=== PATIENT | female | born 1990 | race Two or more races ===

== ENCOUNTER 2021-02-11 15:31 | Emergency (ER) | payer OTHER ==
[~2021-02-11] VITALS: Ht 185.4 cm; Wt 179.2 kg
[2021-02-11 16:26] VITALS: BP 158/100
== END 2021-02-11 16:28 | disposition home or self-care (01) ==
LOC: ER 15:31
DX: L03.311 Cellulitis of abdominal wall (principal); I10 Essential (primary) hypertension; Z88.6 Allergy status to analgesic agent

== ENCOUNTER → 2024-09-21 | Outpatient (CLI) | payer OTHER ==
[2024-09-21 11:20] LABS: Urine Blood Negative /uL (Negative); Urine Clarity Turbid (Clear); Urine Color Yellow (Yellow); Urine Protein, UAD Negative (Negative); Urine Specific Gravity 1.023 (1.001-1.035); Urine Urobilinogen Normal (Negative); Urine pH 5.5 (5.0-9.0)
[2024-09-21 11:34] LABS: Alanine Aminotransferase 26 U/L (7-40); Albumin 4.7 g/dL (3.2-4.8); Alkaline Phosphatase 87 U/L (46-116); Anion Gap 10 (5-15); Aspartate Aminotransferase 15 U/L (13-40); BUN/Creatinine Ratio 10.2 (10.0-20.0); Basophils # (auto) 0 10 ^3/uL (0-0.2); Basophils % (auto) 0.4 % (0.0-2.0); Bilirubin, Total 0.4 mg/dL (0.2-1.0); Blood Urea Nitrogen 9 mg/dL (9-23); Calcium 9.9 mg/dL (8.7-10.4); Carbon Dioxide 25 mmol/L (20-31); Chloride 103 mmol/L (98-107); Cholesterol 192 mg/dL (< 200); Eosinophils # (auto) 0.1 10 ^3/uL (0-0.8); Eosinophils % (auto) 1.5 % (0.0-7.0); Glucose 152 mg/dL (74-106); HDL Cholesterol 53 mg/dL (40-59); Hemoglobin 14.3 g/dL (12.2-16.2); Lymphocytes # (auto) 2.5 10 ^3/uL (0.4-5.4); Lymphocytes % (auto) 26.6 % (10.0-50.0); Mean Corpuscular Hemoglobin 28.5 pg (28.0-32.0); Mean Corpuscular Volume 83.9 fL (80.0-100.0); Monocytes # (auto) 0.5 10 ^3/uL (0-1.3); Monocytes % (auto) 5.7 % (0.0-12.0); Neutrophils # (auto) 6.3 10 ^3/uL (1.6-8.6); Neutrophils % (auto) 65.8 % (37.0-80.0); Nucleated Red Blood Cells % 0.1 %; Platelet Count (auto) 251 10^3/uL (140-450); Potassium 4.1 mmol/L (3.5-5.1); Red Blood Cells 5.01 10^6/uL (4.0-5.20); Red Cell Distribution Width 15.2 % (11.8-14.3); Sodium 138 mmol/L (136-145); Triglycerides 123 mg/dL (< 150); White Blood Cell 9.5 10^3/uL (4.4-10.8)
[2024-09-21 11:35] LABS: LDL Cholesterol 127 mg/dL (< 100)
[2024-09-21 11:37] LABS: Folate (Folic Acid) 10.74 ng/mL (>5.38); Leuteinizing Hormone 7.5 IU/L; Prolactin 9.32 ng/mL (2.8-29.2)
[2024-09-22 08:07] LABS: Estradiol 67.8 pg/mL (.)
== END | disposition home or self-care (01) ==
LOC: LAB 10:30
PROVIDERS: ATTEND Student in an Organized Health Care Education/Training Program
DX: I10 Essential (primary) hypertension (principal); E55.9 Vitamin D deficiency, unspecified; E78.5 Hyperlipidemia, unspecified; N92.6 Irregular menstruation, unspecified; L68.0 Hirsutism; R73.9 Hyperglycemia, unspecified
CPT/HCPCS: 36415; 80053; 80061; 81003; 82306; 82670; 82672; 82746; 83002; 84146; 84403; 84443; 85025